=== PATIENT | female | born 1995 | race Caucasian/White ===

== ENCOUNTER 2017-02-15 06:43 | Emergency (ER) | payer OTHER ==
[2017-02-15] MEDS ORDERED: PROVENTIL IH ONE ×2 (08:12→08:15)
--- NOTE | 2017-02-15 08:21 | Emergency Department Report ---
ED Asthma HPI - General Chief Complaint: Adult Asthma Stated Complaint: ASTHMA ATTACK 28 WEEKS Source: patient Mode of arrival: Ambulatory Limitations: No Limitations - History of Present Illness Initial Comments: 21 y/o F 28 week female with a PMhx of asthma presents with an asthma flare up this morning. Pt states that her last attack was 1 year ago. Pt reports to having an URI for the past 2-3 days. Pt has taken albuterol inhaler and neb treatments around 4 this morning with no relief. Pt reports to coughing , chest tightness, SOB, back/chest discomfort secondary to the cough, and chills. Pt denies any cardiac chest pain, fever, nausea, or vomiting at this time. Pt denies a hx of penumonia or smoking. Otherwise healthy with NKDA. Complaint: "asthma attack", shortness of breath -: hour(s) (this morning) Asthma History: childhood onset (last episode was 1 year ago) Severity: moderate Context: recent URI Associated Symptoms: chest pain (associated with the cough). denies: productive cough, fever Treatments Prior to Arrival: inhaled bronchodilator - Related Data Current Asthma Therapy: inhaled bronchodilator Previous Rx's Medication Instructions Recorded Last Taken Type guaiFENesin DM [Robitussin Dm] 10 ml PO Q6HR PRN #200 udc 02/15/17 Unknown Rx Allergies Allergy/AdvReac Type Severity Reaction Status Date / Time No Known Allergies Allergy Unverified 02/15/17 07:29 ED Review of Systems ROS: Stated complaint: ASTHMA ATTACK 28 WEEKS Other details as noted in HPI Constitutional: chills. denies: fever Eyes: denies: eye pain, eye discharge, vision change ENT: other (PND noted at the posterior pharynx) Respiratory: cough, shortness of breath Cardiovascular: chest pain (only associated with the cough) Musculoskeletal: denies: back pain, joint swelling, arthralgia Skin: denies: rash, lesions Neurological: denies: headache, weakness, paresthesias Psychiatric: denies: anxiety, depression Hematological/Lymphatic: denies: easy bleeding, easy bruising ED Past Medical Hx - Past Medical History Previous Medical History?: Yes Hx Asthma: Yes - Surgical History Past Surgical History?: Yes Additional Surgical History: Gastric Sleeve - Social History Smoking Status: Never Smoker Substance Use Type: None - Medications Home Medications: Home Medications Medication Instructions Recorded Confirmed Last Taken Type guaiFENesin DM [Robitussin Dm] 10 ml PO Q6HR PRN #200 c 02/15/17 Unknown Rx ED Physical Exam - General Limitations: No Limitations General appearance: alert, in no apparent distress - Head Head exam: Present: atraumatic, normocephalic - Eye Eye exam: Present: normal appearance - ENT ENT exam: Present: mucous membranes moist - Neck Neck exam: Present: normal inspection (cough noted intermittently on exam) - Respiratory Respiratory exam: Present: normal lung sounds bilaterally, chest wall tenderness (secondary to the cough), other (intermittent cough noted on examination, no signs of panting or assessory muscle use noted on examination). Absent: respiratory distress, wheezes, rales, rhonchi, stridor, decreased breath sounds - Cardiovascular Cardiovascular Exam: Present: regular rate, normal rhythm. Absent: systolic murmur, diastolic murmur, rubs, gallop - Back Exam Back exam: Present: normal inspection, tenderness (noted secondary to the cough) - Neurological Exam Neurological exam: Present: alert, oriented X3 - Psychiatric Psychiatric exam: Present: normal affect, normal mood - Skin Skin exam: Present: warm, dry, intact, normal color. Absent: rash ED Course Vital Signs 02/15/17 02/15/17 02/15/17 07:25 08:35 08:49 Temperature 98.2 F Pulse Rate 97 H Pulse Rate [ 108 H 100 H Anterior Bilateral] Respiratory 18 Rate Respiratory 20 20 Rate [Anterior Bilateral] Blood Pressure 138/85 Blood Pressure [Right] O2 Sat by Pulse 97 Oximetry 02/15/17 09:22 Temperature Pulse Rate 97 H Pulse Rate [ Anterior Bilateral] Respiratory 20 Rate Respiratory Rate [Anterior Bilateral] Blood Pressure Blood Pressure 123/63 [Right] O2 Sat by Pulse 99 Oximetry - Reevaluation(s) Reevaluation #1: 02/15/17 08:25 pt was educated that there is a limitation in the treatment plan as she is 28 weeks . I have given pt a nebulizer treatment and cough suppressant at this time. Reevaluation #2: 02/15/17 09:17 neb treatment complete pt reports to improvement. No wheezing on examination. ED Medical Decision Making - Medical Decision Making 21 y/o F with a PMHx of asthma presents with an exacerbation, there was no wheezing on examination at this time. Due to the fact that the patient is [address] Baker about treatment plan. I have refrained from CXR at this time as pt is not tachypnic, hypoxic, and CTA to auscultation with no fever. I did not want to expose the patient with radiation due to . Pt was given an albuterol treatment and cough suppressant at this time and reports improvement. Pt was discharged in stable condition, alert and oriented, and does not appear to be in resp distress at this time. Critical care attestation.: If time is entered above; I have spent that time in minutes in the direct care of this critically ill patient, excluding procedure time. ED Disposition Clinical Impression: Asthma Qualifiers: Asthma severity: unspecified severity Asthma complication type: uncomplicated Qualified Code(s): J45.909 - Unspecified asthma, uncomplicated Disposition: TO HOME OR SELFCARE Is pt being admited?: No Does the pt Need Aspirin: No Condition: Stable Instructions: Guaifenesin (By mouth), Asthma (ED) Additional Instructions: Pt was educated to take the cough medication as needed for the cough. Pt was advised to follow-up with OBGYN justo. Pt advised to return to the ED with worsening symptoms such as: can't breath, chest pain, increased wheezing, and SOB. Prescriptions: guaiFENesin DM [Robitussin Dm] 10 ml PO Q6HR PRN #200 udc PRN Reason: cough Referrals: PRIMARY CARE, [Primary Care Provider] - 3-5 Days [facility] [Outside] - 3-[address] [facility] [Outside] - 3-5 Days Forms: Work/School Release Form(ED) Time of Disposition: 09:30
[2017-02-15] MEDS ORDERED: ROBITUSSIN DM PO ONE (08:24)
[2017-02-15 09:24] VITALS: BP 123/63
== END 2017-02-15 09:42 | disposition home or self-care (01) ==
LOC: ED 06:43
DX: J45.909 Unspecified asthma, uncomplicated (principal)
CPT/HCPCS: 94640

== ENCOUNTER 2017-05-03 20:58 | Outpatient (CLI) | payer OTHER ==
[2017-05-03 22:57] VITALS: BP 128/63
== END 2017-05-03 23:40 | disposition home or self-care (01) ==
LOC: TRG 20:58 → LD 22:12 → TRG 23:40
PROVIDERS: ATTEND Obstetrics & Gynecology
DX: O47.1 False labor at or after 37 completed weeks of gestation (principal); Z87.891 Personal history of nicotine dependence; Z3A.39 39 weeks gestation of pregnancy

== ENCOUNTER 2017-05-06 09:40 | Outpatient (CLI) | payer OTHER ==
[2017-05-06 10:38] VITALS: BP 134/77
[2017-05-06] MEDS ORDERED: MORPHINE IM ONE (12:00)
== END 2017-05-06 11:02 | disposition home or self-care (01) ==
LOC: TRG 09:40
PROVIDERS: ATTEND Obstetrics & Gynecology
DX: O47.03 False labor before 37 completed weeks of gestation, third trimester (principal); Z87.891 Personal history of nicotine dependence; Z3A.39 39 weeks gestation of pregnancy
CPT/HCPCS: 59025

== ENCOUNTER 2017-05-07 13:44 | Inpatient (IN) | payer OTHER ==
[2017-05-07 16:35] LABS: Basophils % (Auto) 0.4 % (0.0-1.8); Eosinophils % (Auto) 1.3 % (0.0-4.3); Hemoglobin 12.8 gm/dl (10.1-14.3); Mean Corpuscular HGB Conc 33 % (30-34); Mean Corpuscular Hemoglobin 28 pg (28-32); Mean Corpuscular Volume 86 fl (79-97); Platelet Count 253 K/mm3 (140-440); Red Blood Count 4.56 M/mm3 (3.65-5.03); Red Cell Distribution Width 13.7 % (13.2-15.2); White Blood Count 7.4 K/mm3 (4.5-11.0)
[2017-05-07] MEDS ORDERED: MINERAL OIL PO PRN (17:30)
[2017-05-07] MEDS ORDERED: BRETHINE SUB-Q PRN (17:30)
[2017-05-07] MEDS ORDERED: ePHEDrine SULFATE IV PRN (17:30)
[2017-05-07] MEDS ORDERED: BRETHINE IVP PRN (17:30)
[2017-05-07] MEDS ORDERED: XYLOCAINE 2% INFILTRATI ONE (17:30)
[2017-05-07] MEDS ORDERED: ZOFRAN IV PRN (17:30)
[2017-05-07] MEDS ORDERED: NARCAN 0.4 MG/1 ML IV PRN (17:30)
[2017-05-07] MEDS ORDERED: SUBLIMAZE IV PRN (17:30)
[2017-05-07] MEDS: STADOL IV PRN ×2 (17:45→20:42)
[2017-05-07] MEDS: LACTATED RINGERS 1,000 ML IV SCH ×2 (17:46→23:20)
[2017-05-07] MEDS ORDERED: PITOCin/NS 20 UNIT/1000ML DRIP 20 UNITS/1,000 ML BAG IV SCH (18:00)
[2017-05-07] MEDS ORDERED: LACTATED RINGERS 1,000 ML IV SCH (18:00)
[2017-05-07] MEDS ORDERED: CERVIDIL VG ONE (18:00)
--- NOTE | 2017-05-08 00:49 | History and Physical Report ---
History of Present Illness Date of examination: 05/08/17 Date of admission: 05/07/17 15:20 Chief complaint: contractions History of present illness: Pt is a 22 year old -[place] female primgravida JACOB 05/07/17 was admitted on 05/07/17 secondary to variable decelerations with slow return to baseline while being observed in triage. A decision was made to proceed with induction of labor secondary to non-reassuring status. She received cervidil for cervical ripening. The patient reports irregular contractions and denies vaginal bleeding or leakage of fluid. She has had care at [facility] since 16 wks when she transferred into care complicated by asthma, obesity, h/o gastric sleeve, GERD and limited anatomy scan with normal follow up scan. She is GBS negative. Past History Past Medical History: asthma, GERD, other (obesity ) Past Surgical History: gastric bypass Family/Genetic History: diabetes, heart disease, cancer Social history: no significant social history - Obstetrical History Expected Date of Delivery: 05/07/17 Actual Gestation: 40 Week(s) 1 Day(s) : 1 Medications and Allergies Allergies Allergy/AdvReac Type Severity Reaction Status Date / Time No Known Allergies Allergy Verified 05/06/17 09:43 Home Medications Medication Instructions Recorded Confirmed Last Taken Type ALBUTEROL Inhaler [Proair] 2 puff IH QID PRN 05/07/17 05/07/17 2 Weeks Ago History ~04/23/17 Active Meds: Active Medications Butorphanol Tartrate (Stadol) 2 mg IV Q2H PRN PRN Reason: Pain , Severe (7-10) Last Admin: 05/07/17 20:42 Dose: 2 mg Ephedrine Sulfate (Ephedrine Sulfate) 10 mg IV Q2M PRN PRN Reason: Hypotension Fentanyl (Sublimaze) 100 mcg IV Q2H PRN PRN Reason: Labor Pain Last Admin: 05/07/17 22:49 Dose: 100 mcg Lactated Ringer's (Lactated Ringers) 1,000 mls @ 150 mls/hr IV DIRECT AYLIN Last Admin: 05/07/17 23:20 Dose: 150 mls/hr Lactated Ringer's (Lactated Ringers) 1,000 mls @ 125 mls/hr IV DIRECT AYLIN Oxytocin/Sodium Chloride (Pitocin/Ns 20 Unit/1000ml Drip) 20 units in 1,000 mls @ 125 mls/hr IV DIRECT AYLIN Oxytocin/Sodium Chloride (Pitocin/Ns 30 Unit/500ml) 30 units in 500 mls @ 4 mls /hr IV TITR AYLIN PRN Reason: Protocol Mineral Oil (Mineral Oil) 30 ml PO QHS PRN PRN Reason: Constipation Naloxone HCl (Narcan 0.4 Mg/1 Ml) 0.1 mg IV Q2MIN PRN PRN Reason: Res Rate </= 8 or 02 SAT < 92% Ondansetron HCl (Zofran) 4 mg IV Q8H PRN PRN Reason: Nausea And Vomiting Terbutaline Sulfate (Brethine) 0.25 mg SUB-Q ONCE PRN PRN Reason: Hyperstimulation/Hypertonicity Terbutaline Sulfate (Brethine) 0.25 mg IVP ONCE PRN PRN Reason: Hyperstimulation/Hypertonicity Review of Systems All systems: negative - Vital Signs Vital signs: Vital Signs Pulse BP 97 H 127/93 05/07/17 14:07 05/07/17 14:07 Temp Pulse Resp BP Pulse Ox 97.6 F 57 L 18 146/90 100 05/07/17 19:33 05/08/17 00:44 05/07/17 22:49 05/08/17 00:43 05/08/17 00:44 - Physical Exam Breasts: Positive: deferred Abdomen: Positive: soft (gravid ) Genitourinary (Female): Positive: normal external genitalia Uterus: Positive: enlarged (gravid ) - Obstetrical FHR: category 2 Uterine Contraction Monitor Mode: External Cervical Dilatation: 7 (per RN ) Uterine Contraction Pattern: Irregular Uterine Tone Measurement Phase: Resting Uterine Contraction Intensity: Mild Results Result Diagrams: 05/07/17 15:53 Abnormal lab results 05/07/17 Range/Units 15:53 [place] % (Auto) 10.0 H (0.0-7.3) % All other labs normal. Assessment and Plan A: IUP at 40w0d Active labor Obesity Asthma GERD H/o gastric bypass GBS negative P: Admit to labor and delivery. Routine intrapartum care. Anticipate .
--- NOTE | 2017-05-08 00:54 | Procedure Note ---
OB Delivery Note - Delivery Date of Delivery: 05/08/17 Surgeon: BERNARD OSBORN Estimated blood loss: other (400 mL) - Vaginal Delivery presentation: vertex Delivery position: OA Intrapartum events: mult.variable deceleratio Delivery induction: cervidil Delivery monitor: external FHT, external uterine Route of delivery: Delivery placenta: spontaneous Episiotomy: none Delivery laceration: 1st degree (right labial ) Anesthesia: intravenous Delivery comments: Pt rapidly progressed from 7 cm to complete dilation to delivery of a viable female over intact perineum via spontaneous vaginal delivery under IV anesthesia while provider vibration analyst was en route. The was delivered by nurse in attendance. Cord was clamped and cut and handed to nurse. Placenta delivered spontaneously. Vagina and perineum explored. Right labial laceration noted to be hemostatic. EBL 400 mL - Infant A at 1 minute: 8 at 5 minutes: 9 Infant Gender: Female (2712g (6lb 0oz) @ 0018 am)
[2017-05-08] MEDS ORDERED: NORCO 5/325 PO PRN (01:25)
[2017-05-08] MEDS ORDERED: PITOCin/NS 20 UNIT/1000ML DRIP 20 UNITS/1,000 ML BAG IV SCH (03:07)
[2017-05-08] MEDS ORDERED: BENADRYL PO PRN (03:07)
[2017-05-08] MEDS ORDERED: MILK OF MAGNESIA PO PRN (03:07)
[2017-05-08] MEDS ORDERED: TUCKS PAD TP PRN (03:07)
[2017-05-08] MEDS ORDERED: DULCOLAX PR PRN (03:07)
[2017-05-08] MEDS ORDERED: SODIUM CHLORIDE FLUSH SYRINGE 10 ML IV NR (03:07)
[2017-05-08] MEDS ORDERED: ZOFRAN IV PRN (03:07)
[2017-05-08] MEDS ORDERED: TYLENOL PO PRN (03:07)
[2017-05-08] MEDS ORDERED: PHENERGAN PO PRN (03:07)
[2017-05-08] MEDS ORDERED: PHENERGAN PR PRN (03:07)
[2017-05-08] MEDS: MOTRIN PO SCH ×3 (05:40→20:07)
[2017-05-08] MEDS ORDERED: PITOCin/NS 30 UNIT/500ML 30 UNITS/500 ML BAG IV SCH (07:00)
[2017-05-08] MEDS: NORCO 5/325 PO PRN ×2 (08:28→20:08)
[2017-05-08] MEDS: FEOSOL PO SCH ×2 (13:17→20:07)
[2017-05-08] MEDS: PRENATAL VITAMIN PO SCH (13:17)
[2017-05-08 14:01] LABS: Hematocrit 36.4 % (30.3-42.9); Hemoglobin 12.3 gm/dl (10.1-14.3)
[2017-05-09] MEDS: MOTRIN PO SCH ×2 (05:54→12:14)
[2017-05-09] MEDS: NORCO 5/325 PO PRN ×2 (05:54→20:03)
[2017-05-09] MEDS ORDERED: M-M-R II VACCINE SUB-Q ONE (06:00)
[2017-05-09] MEDS ORDERED: BOOSTRIX IM ONE (06:05)
--- NOTE | 2017-05-09 09:02 | Progress Note ---
Assessment and Plan O: VSS AF PP H/H: 12.3/36.4 A: Stable PP Day 1 P: D/C tomorrow Subjective - Subjective Date of service: 05/09/17 Patient reports: appetite normal, voiding normally, pain well controlled, ambulating normally [place]: doing well, other ( under bili lights) Objective - Vital Signs Latest vital signs: Vital Signs Temp Pulse Resp BP 05/09/17 01:00 98.6 F 77 16 112/69 05/08/17 17:30 98.1 F 103 H 18 137/86 Intake and Output 05/08/17 05/09/17 05/09/17 22:59 06:59 14:59 Intake Total 120 300 Balance 120 300 Intake: Oral 120 Intake, Free Water 300 Other: Total, Intake Amount 120 - Exam Breasts: Present: deferred Lungs: Present: Normal air movement Abdomen: Present: normal appearance, soft. Absent: distention, tenderness Vulva: both: normal Uterus: Present: normal, firm, fundal height below umbilicus. Absent: bogginess , tenderness Extremities: Present: normal
[2017-05-09] MEDS: FEOSOL PO SCH ×2 (12:14→22:11)
[2017-05-09] MEDS: PRENATAL VITAMIN PO SCH (12:14)
[2017-05-10] MEDS: MOTRIN PO SCH ×2 (00:09→05:45)
--- NOTE | 2017-05-10 08:51 | Progress Note ---
Assessment and Plan A: PPD# 2 s/p at term P: Routine care. Discharge home today. Subjective - Subjective Date of service: 05/10/17 Principal diagnosis: s/p at term Interval history: No issues overnight. Patient reports: appetite normal, voiding normally, pain well controlled, ambulating normally, no nauseated [place]: doing well Objective - Vital Signs Latest vital signs: Vital Signs Temp Pulse Resp BP 05/10/17 00:00 98.6 F 77 16 101/68 05/09/17 16:20 97.9 F 62 20 140/84 Intake and Output 05/09/17 05/10/17 05/10/17 22:59 06:59 14:59 Intake Total 360 300 Balance 360 300 Intake: Oral 360 Intake, Free Water 300 Other: Total, Intake Amount 360 # Voids Void 1 - Exam Breasts: Present: deferred Cardiovascular: Present: Regular rate Lungs: Present: Clear to auscultation Abdomen: Present: soft (obese ) Uterus: Present: fundal height below umbilicus Extremities: Present: normal
--- NOTE | 2017-05-10 09:48 | Discharge Summary ---
Providers - Providers Date of Admission: 05/07/17 15:20 Date of discharge: 05/10/17 Attending physician: BERNARD WALLS 05/08/17 03:07 Consult to Client Director [CONS] Routine Reason For Exam: assistance with , SNS Primary care physician: JENNIFER OSMAN MD Hospitalization Reason for admission: induction of labor Delivery: Procedure details: Please see delivery note. Episiotomy: none Laceration: 1st degree (right labial ) Incision: intact Other procedures: none complications: none Discharge diagnosis: IUP at term delivered [place] baby: female Hospital course: Pt was admitted for induction of labor and underwent a spontaneous vaginal delivery which she tolerated well. Her course was uncomplicated and she met discharge criteria on PPD#2. She will follow up in office in [address] Walls. Condition at discharge: Stable Disposition: DC-01 TO HOME OR SELFCARE - Discharge Diagnoses (1) Term of female Status: Acute (2) Obesity Status: Acute Qualifiers: Obesity type: unspecified obesity type Obesity classification: unspecified obesity classification Serious obesity comorbidity presence: unspecified whether serious comorbidity present Qualified Code(s): E66.9 - Obesity, unspecified Plan - Discharge Medications Prescriptions: HYDROcodone/ACETAMINOPHEN [[place] 5-325 Tablet] 1 each PO Q6H PRN #20 tablet PRN Reason: Pain Ibuprofen [Motrin] 800 mg PO Q8HR PRN #30 tablet PRN Reason: Pain - Provider Discharge Summary Activity: routine, no sex for 6 weeks, no heavy lifting 4 weeks, no strenuous exercise Diet: routine Instructions: routine Additional instructions: [] Smoking cessation referral if applicable(refer to patient education folder for contact #) [] Refer to [facility]'s [facility] Booklet Call your doctor immediately for: * Fever > 100.5 * Heavy vaginal bleeding ( >1 pad per hour) * Severe persistent headache * Shortness of breath * Reddened, hot, painful area to leg or breast * Drainage or odor from incision. * Keep incision clean and dry at all times and follow doctor's instructions regarding bathing/showering - Follow up plan Follow up: BERNARD WALLS MD [Staff Physician] - 06/17/17 (Please call to schedule appt )
[2017-05-10 16:49] VITALS: BP 115/85
== END 2017-05-10 16:20 | disposition home or self-care (01) | DRG 775 ==
LOC: TRG 13:44 → LD 15:20 → OB 05-08 02:39
PROVIDERS: ADMIT Obstetrics & Gynecology; ATTEND Obstetrics & Gynecology
PROC: 10E0XZZ Delivery of Products of Conception, External Approach (ICD-10-PCS; principal; 2017-05-08)
PROC: 0HQ9XZZ Repair Perineum Skin, External Approach (ICD-10-PCS; 2017-05-08)
PROC: 3E0234Z Introduction of Serum, Toxoid and Vaccine into Muscle, Percutaneous Approach (ICD-10-PCS; 2017-05-09)
DX: O76 Abnormality in fetal heart rate and rhythm complicating labor and delivery (principal); E66.9 Obesity, unspecified; O99.214 Obesity complicating childbirth; O70.0 First degree perineal laceration during delivery; J45.909 Unspecified asthma, uncomplicated; K21.9 Gastro-esophageal reflux disease without esophagitis; O99.52 Diseases of the respiratory system complicating childbirth; Z23 Encounter for immunization; Z3A.40 40 weeks gestation of pregnancy; Z37.0 Single live birth; Z88.0 Allergy status to penicillin; Z91.040 Latex allergy status; Z68.54 Body mass index [BMI] pediatric, 95th percentile for age to less than 120% of the 95th percentile for age; O99.62 Diseases of the digestive system complicating childbirth
CPT/HCPCS: 36415; 59025; 85014; 85018; 85025; 86592; 86850; 86900; 86901; 90715; 93005; 93010; 99211; G0463; J0595; J2590; J3010; J7120

== ENCOUNTER 2021-10-12 08:43 | Emergency (ER) | payer OTHER | END 2021-10-12 14:00 | disposition left against medical advice (07) | LOC: ED 08:43 | DX: J45.909 Unspecified asthma, uncomplicated (principal); Z53.21 Procedure and treatment not carried out due to patient leaving prior to being seen by health care provider ==